=== PATIENT | male | born 1945 | race Caucasian/White ===

== ENCOUNTER 2018-02-23 17:15 | Inpatient (IN) | payer MEDICARE ==
[~2018-02-23] VITALS: Ht 168.9 cm; Wt 84.2 kg
[2018-02-23 18:03] LABS: BASOPHILS % (AUTO) 0.2 % (0.0-5.0); EOSINOPHILS % (AUTO) 0.1 % (0.0-8.0); HEMATOCRIT 39.7 % (42-54); LYMPHOCYTES % (AUTO) 2.3 % (21.0-51.0); MEAN CORPUSCULAR HEMOGLOBIN 28.7 pg (27.0-33.0); MEAN CORPUSCULAR HGB CONC 34.8 g/dL (32.0-36.0); MEAN CORPUSCULAR VOLUME 82.5 fL (79-99); MONOCYTES % (AUTO) 7.4 % (3.0-13.0); PLATELET COUNT (AUTO) 211 K/uL (130-400); RED BLOOD CELL COUNT(AUTO) 4.81 MIL/uL (4.50-6.20); RED CELL DISTRIBUTION WIDTH 14.5 % (11.0-15.5); WHITE BLOOD COUNT (AUTO) 15.1 K/uL (4.8-10.8)
[2018-02-23] MEDS ORDERED: CEFTRIAXONE SODIUM 1 GM ONE (18:09)
[2018-02-23] MEDS ORDERED: SODIUM CHLORIDE 0.9% 50 ML IV ONE (18:10)
[2018-02-23 18:20] LABS: ALBUMIN 2.3 g/dL (3.5-5.0); BILIRUBIN,TOTAL 1.4 mg/dL (0.2-1.0); POTASSIUM 4.7 mmol/L (3.5-5.1); TOTAL PROTEIN, SERUM 7.5 g/dL (6.0-8.3)
[2018-02-23 18:23] LABS: CREATININE 9.3 mg/dL (0.5-1.5)
[2018-02-23 18:57] LABS: BILIRUBIN,URINE Negative (NEGATIVE); COLOR,URINE Dark Yellow (YELLOW); GLUCOSE, URINE (UA) Negative (NEGATIVE); KETONES,URINE Negative (NEGATIVE); LEUKOCYTE ESTERASE ,URINE Large (NEGATIVE); NITRATE,URINE Negative (NEGATIVE); OCCULT BLOOD,URINE Large (NEGATIVE); PH,URINE 5.5 (5.0-8.0); PROTEIN,URINE 300 (NEGATIVE)
[2018-02-23] MEDS ORDERED: SODIUM CHLORIDE 0.9% 1000ML 1,000 ML IV ONE (18:57)
[2018-02-23 19:08] LABS: APPEARANCE,URINE CLOUDY (CLEAR)
[2018-02-23 19:50] LABS: WBC,URINE 51-100 /HPF (0-1)
[2018-02-23 19:51] LABS: BACTERIA,URINE Few /HPF (None Seen)
[2018-02-23 19:52] LABS: SQUAMOUS EPITHELIAL CELL,UR Rare /HPF (0-2)
[2018-02-23] MEDS ORDERED: ONDANSETRON HCL MDV 20ML 2 MG/ML VIAL IVP PRN (23:45)
[2018-02-23] MEDS ORDERED: ACETAMINOPHEN 325 MG TAB PO PRN (23:45)
[2018-02-23] MEDS ORDERED: PHARMACY COMMUNICATION MISC SCH (23:45)
[2018-02-24] VITALS (8 sets, daily range): BP systolic 111–132; BP diastolic 54–74
[2018-02-24] MEDS ORDERED: CEFTRIAXONE SODIUM 1 GM IVP SCH
[2018-02-24] MEDS: SODIUM CHLORIDE 0.9% 1000ML 1,000 ML IV SCH ×4 (01:07→10:00)
[2018-02-24] MEDS ORDERED: ZOSYN 3.375GM+NS 50ML 50 ML IV ONE (03:41)
[2018-02-24 05:42] LABS: BASOPHILS % (AUTO) 0.1 % (0.0-5.0); EOSINOPHILS % (AUTO) 0.2 % (0.0-8.0); HEMATOCRIT 34.6 % (42-54); LYMPHOCYTES % (AUTO) 2.2 % (21.0-51.0); MEAN CORPUSCULAR HEMOGLOBIN 27.8 pg (27.0-33.0); MEAN CORPUSCULAR HGB CONC 33.8 g/dL (32.0-36.0); MEAN CORPUSCULAR VOLUME 82.4 fL (79-99); NEUTROPHILS % (AUTO) 84.5 % (40.0-77.0); PLATELET COUNT (AUTO) 167 K/uL (130-400); RED CELL DISTRIBUTION WIDTH 14.8 % (11.0-15.5); WHITE BLOOD COUNT (AUTO) 15.4 K/uL (4.8-10.8)
[2018-02-24 06:01] LABS: ALBUMIN 1.8 g/dL (3.5-5.0); BILIRUBIN,TOTAL 1.1 mg/dL (0.2-1.0); POTASSIUM 4.2 mmol/L (3.5-5.1)
[2018-02-24 06:03] LABS: CREATININE 9.9 mg/dL (0.5-1.5)
[2018-02-24 06:12] LABS: CRP QUANTITATIVE 53.9 mg/L (0.00-9.0)
[2018-02-24 08:15] LABS: CREATININE,URINE RANDOM 101 mg/dL (30-135); SODIUM,URINE RANDOM 46 mmol/l (40-220)
[2018-02-24] MEDS ORDERED: ZOSYN 3.375GM+NS 50ML 50 ML IV SCH (09:00)
[2018-02-24] MEDS ORDERED: LISI-613 PO (10:03)
[2018-02-24] MEDS: METOPROLOL TARTRATE 25 MG TAB PO SCH (10:04)
[2018-02-24] MEDS: ZOSYN 3.375GM+NS 50ML 50 ML IV SCH (20:55)
[2018-02-24] MEDS ORDERED: ZOSYN 2.25GM+NS 50ML 50 ML IV SCH (21:00)
[2018-02-25 03:40] VITALS: BP 124/72
[2018-02-25 04:53] LABS: HEMATOCRIT 33.6 % (42-54); MEAN CORPUSCULAR HEMOGLOBIN 28.8 pg (27.0-33.0); MEAN CORPUSCULAR HGB CONC 34.9 g/dL (32.0-36.0); MEAN CORPUSCULAR VOLUME 82.6 fL (79-99); PLATELET COUNT (AUTO) 205 K/uL (130-400); RED BLOOD CELL COUNT(AUTO) 4.06 MIL/uL (4.50-6.20); RED CELL DISTRIBUTION WIDTH 15.2 % (11.0-15.5); WHITE BLOOD COUNT (AUTO) 14.1 K/uL (4.8-10.8)
[2018-02-25 05:15] LABS: ALBUMIN 1.6 g/dL (3.5-5.0); BILIRUBIN,TOTAL 1.4 mg/dL (0.2-1.0); POTASSIUM 3.8 mmol/L (3.5-5.1); TOTAL PROTEIN, SERUM 5.7 g/dL (6.0-8.3)
[2018-02-25 05:25] LABS: CREATININE 10.4 mg/dL (0.5-1.5)
[2018-02-25] MEDS: SODIUM CHLORIDE 0.9% 1000ML 1,000 ML IV SCH ×2 (06:00→18:44)
[2018-02-25 08:25] VITALS: BP 123/53
[2018-02-25] MEDS: METOPROLOL TARTRATE 25 MG TAB PO SCH (09:00)
[2018-02-25] MEDS: ENOXAPARIN SODIUM 30 MG/0.3 ML SQ SCH (09:01)
[2018-02-25] MEDS: PANTOPRAZOLE SODIUM 40 MG TABLET.DR PO SCH (09:02)
[2018-02-25] MEDS: ZOSYN 3.375GM+NS 50ML 50 ML IV SCH (09:02)
[2018-02-25 10:26] LABS: BASOPHILS % (AUTO) 0.5 % (0.0-5.0); EOSINOPHILS % (AUTO) 0.5 % (0.0-8.0); HEMATOCRIT 33.3 % (42-54); LYMPHOCYTES % (AUTO) 3.6 % (21.0-51.0); MEAN CORPUSCULAR HEMOGLOBIN 28.4 pg (27.0-33.0); MEAN CORPUSCULAR HGB CONC 34.6 g/dL (32.0-36.0); MONOCYTES % (AUTO) 10.8 % (3.0-13.0); NEUTROPHILS % (AUTO) 84.6 % (40.0-77.0); PLATELET COUNT (AUTO) 202 K/uL (130-400); RED BLOOD CELL COUNT(AUTO) 4.07 MIL/uL (4.50-6.20); RED CELL DISTRIBUTION WIDTH 14.9 % (11.0-15.5); WHITE BLOOD COUNT (AUTO) 14.8 K/uL (4.8-10.8)
[2018-02-25 12:46] VITALS: BP 114/64
[2018-02-25 13:40] LABS: PROTEIN,URINE RANDOM 125.5 mg/dL (0-11.9)
[2018-02-25] MEDS: MEROPENEM 1 GM VIAL IVP SCH (16:38)
[2018-02-25 16:53] VITALS: BP 130/68
[2018-02-25 20:05] VITALS: BP 115/66
[2018-02-25] MEDS: SIMETHICONE 80 MG TAB.CHEW PO PRN (21:16)
[2018-02-26 00:21] VITALS: BP 125/72
[2018-02-26] MEDS: SODIUM CHLORIDE 0.9% 1000ML 1,000 ML IV SCH ×2 (02:04→21:24)
[2018-02-26 03:25] VITALS: BP 115/59
[2018-02-26 05:24] LABS: BASOPHILS % (AUTO) 0.3 % (0.0-5.0); EOSINOPHILS % (AUTO) 0.6 % (0.0-8.0); HEMATOCRIT 39.6 % (42-54); LYMPHOCYTES % (AUTO) 17.7 % (21.0-51.0); MEAN CORPUSCULAR HEMOGLOBIN 27.6 pg (27.0-33.0); MEAN CORPUSCULAR HGB CONC 33.4 g/dL (32.0-36.0); MEAN CORPUSCULAR VOLUME 82.8 fL (79-99); MONOCYTES % (AUTO) 6.2 % (3.0-13.0); NEUTROPHILS % (AUTO) 75.2 % (40.0-77.0); PLATELET COUNT (AUTO) 199 K/uL (130-400); RED BLOOD CELL COUNT(AUTO) 4.78 MIL/uL (4.50-6.20); RED CELL DISTRIBUTION WIDTH 15.5 % (11.0-15.5)
[2018-02-26 05:43] LABS: ALBUMIN 1.7 g/dL (3.5-5.0); BILIRUBIN,TOTAL 1.1 mg/dL (0.2-1.0); POTASSIUM 4.2 mmol/L (3.5-5.1); TOTAL PROTEIN, SERUM 6.1 g/dL (6.0-8.3)
[2018-02-26 05:47] LABS: CREATININE 11.5 mg/dL (0.5-1.5)
[2018-02-26] MEDS ORDERED: 1/2 NORMAL SALINE 1,000 ML IV SCH (07:15)
[2018-02-26 07:30] VITALS: BP 132/78
[2018-02-26] MEDS: PANTOPRAZOLE SODIUM 40 MG TABLET.DR PO SCH (08:15)
[2018-02-26] MEDS: ENOXAPARIN SODIUM 30 MG/0.3 ML SQ SCH (08:16)
[2018-02-26] MEDS: METOPROLOL TARTRATE 25 MG TAB PO SCH (08:16)
[2018-02-26] MEDS ORDERED: FOLIC ACID/VITAMIN B COMP W-C 1 MG CAPSULE PO SCH (09:00)
[2018-02-26] MEDS ORDERED: PHARMACY COMMUNICATION MISC SCH (10:30)
[2018-02-26 11:00] VITALS: BP 120/66
[2018-02-26] MEDS: SODIUM BICARB 8.4% 50ML SYRING 75 MEQ in 1/2 NORMAL SALINE 1,000 ML IVP SCH (11:49)
[2018-02-26] MEDS: MEROPENEM 1 GM VIAL IVP SCH (12:32)
[2018-02-26 16:00] VITALS: BP 132/70
[2018-02-26 20:00] VITALS: BP 136/77
[2018-02-27] VITALS: BP 136/76
[2018-02-27] MEDS: SODIUM BICARB 8.4% 50ML SYRING 75 MEQ in 1/2 NORMAL SALINE 1,000 ML IVP SCH (00:32)
[2018-02-27 04:00] VITALS: BP 136/75
[2018-02-27 06:04] LABS: BASOPHILS % (AUTO) 0.3 % (0.0-5.0); EOSINOPHILS % (AUTO) 0.8 % (0.0-8.0); HEMATOCRIT 33.9 % (42-54); LYMPHOCYTES % (AUTO) 9.1 % (21.0-51.0); MEAN CORPUSCULAR HEMOGLOBIN 28.7 pg (27.0-33.0); MEAN CORPUSCULAR HGB CONC 35.1 g/dL (32.0-36.0); MEAN CORPUSCULAR VOLUME 81.9 fL (79-99); MONOCYTES % (AUTO) 7.9 % (3.0-13.0); NEUTROPHILS % (AUTO) 81.9 % (40.0-77.0); NUCLEATED RED BLOOD CELLS 0.1 % (0.0-0.19); PLATELET COUNT (AUTO) 274 K/uL (130-400); RED BLOOD CELL COUNT(AUTO) 4.14 MIL/uL (4.50-6.20); RED CELL DISTRIBUTION WIDTH 14.9 % (11.0-15.5); WHITE BLOOD COUNT (AUTO) 14.2 K/uL (4.8-10.8)
[2018-02-27 06:23] LABS: POTASSIUM 4.4 mmol/L (3.5-5.1)
[2018-02-27] MEDS: PANTOPRAZOLE SODIUM 40 MG TABLET.DR PO SCH (06:48)
[2018-02-27 08:00] VITALS: BP 146/77
[2018-02-27] MEDS ORDERED: FUROSEMIDE 10 MG/ML 4ML VIAL IV SCH (08:00)
[2018-02-27] MEDS: METOPROLOL TARTRATE 25 MG TAB PO SCH (09:41)
[2018-02-27] MEDS: ENOXAPARIN SODIUM 30 MG/0.3 ML SQ SCH (09:43)
[2018-02-27 11:00] VITALS: BP 139/74
[2018-02-27] MEDS: MEROPENEM 1 GM VIAL IVP SCH (13:22)
[2018-02-27 16:00] VITALS: BP 140/74
[2018-02-27 20:00] VITALS: BP 140/75
[2018-02-28] VITALS: BP 129/65
[2018-02-28 04:20] VITALS: BP 149/73
[2018-02-28 05:37] LABS: BASOPHILS % (AUTO) 0.7 % (0.0-5.0); EOSINOPHILS % (AUTO) 1.2 % (0.0-8.0); HEMATOCRIT 33.4 % (42-54); LYMPHOCYTES % (AUTO) 9.5 % (21.0-51.0); MEAN CORPUSCULAR HEMOGLOBIN 27.9 pg (27.0-33.0); MEAN CORPUSCULAR HGB CONC 34.4 g/dL (32.0-36.0); MEAN CORPUSCULAR VOLUME 81.2 fL (79-99); NEUTROPHILS % (AUTO) 80.6 % (40.0-77.0); PLATELET COUNT (AUTO) 299 K/uL (130-400); RED BLOOD CELL COUNT(AUTO) 4.11 MIL/uL (4.50-6.20); RED CELL DISTRIBUTION WIDTH 14.9 % (11.0-15.5); WHITE BLOOD COUNT (AUTO) 13.6 K/uL (4.8-10.8)
[2018-02-28 05:59] LABS: POTASSIUM 4.6 mmol/L (3.5-5.1)
[2018-02-28 07:00] VITALS: BP 133/75
[2018-02-28] MEDS: PANTOPRAZOLE SODIUM 40 MG TABLET.DR PO SCH (07:06)
[2018-02-28] MEDS: METOPROLOL TARTRATE 25 MG TAB PO SCH (10:00)
[2018-02-28] MEDS: SIMETHICONE 80 MG TAB.CHEW PO PRN (10:00)
[2018-02-28] MEDS: ENOXAPARIN SODIUM 30 MG/0.3 ML SQ SCH (10:02)
[2018-02-28 11:00] VITALS: BP 121/74
[2018-02-28] MEDS: MEROPENEM 1 GM VIAL IVP SCH (13:30)
[2018-02-28 16:00] VITALS: BP 140/76
[2018-02-28 20:34] VITALS: BP 129/64
[2018-03-01 00:47] VITALS: BP 129/60
[2018-03-01 05:08] VITALS: BP 147/71
[2018-03-01 06:13] LABS: HEMATOCRIT 34.3 % (42-54); MEAN CORPUSCULAR HEMOGLOBIN 28.7 pg (27.0-33.0); MEAN CORPUSCULAR HGB CONC 35.1 g/dL (32.0-36.0); MEAN CORPUSCULAR VOLUME 81.8 fL (79-99); PLATELET COUNT (AUTO) 456 K/uL (130-400); RED BLOOD CELL COUNT(AUTO) 4.19 MIL/uL (4.50-6.20); RED CELL DISTRIBUTION WIDTH 14.7 % (11.0-15.5); WHITE BLOOD COUNT (AUTO) 14.5 K/uL (4.8-10.8)
[2018-03-01 06:36] LABS: ALBUMIN 1.9 g/dL (3.5-5.0); BILIRUBIN,TOTAL 0.8 mg/dL (0.2-1.0); POTASSIUM 4.7 mmol/L (3.5-5.1); TOTAL PROTEIN, SERUM 6.5 g/dL (6.0-8.3)
[2018-03-01] MEDS: PANTOPRAZOLE SODIUM 40 MG TABLET.DR PO SCH (06:36)
[2018-03-01 06:45] LABS: CREATININE 10.8 mg/dL (0.5-1.5)
[2018-03-01 08:00] VITALS: BP 134/77
[2018-03-01] MEDS: ENOXAPARIN SODIUM 30 MG/0.3 ML SQ SCH (09:36)
[2018-03-01] MEDS: METOPROLOL TARTRATE 25 MG TAB PO SCH (09:36)
[2018-03-01 12:00] VITALS: BP 137/78
[2018-03-01] MEDS: MEROPENEM 1 GM VIAL IVP SCH (14:27)
[2018-03-01 16:59] VITALS: BP 133/70
[2018-03-01 19:00] VITALS: BP 139/65
[2018-03-02] VITALS: BP 140/73
[2018-03-02 04:00] VITALS: BP 145/68
[2018-03-02 05:25] LABS: BASOPHILS % (AUTO) 0.8 % (0.0-5.0); EOSINOPHILS % (AUTO) 0.9 % (0.0-8.0); HEMATOCRIT 32.1 % (42-54); LYMPHOCYTES % (AUTO) 12.2 % (21.0-51.0); MEAN CORPUSCULAR HEMOGLOBIN 27.6 pg (27.0-33.0); MEAN CORPUSCULAR HGB CONC 33.6 g/dL (32.0-36.0); MONOCYTES % (AUTO) 10.2 % (3.0-13.0); NEUTROPHILS % (AUTO) 75.9 % (40.0-77.0); PLATELET COUNT (AUTO) 424 K/uL (130-400); RED BLOOD CELL COUNT(AUTO) 3.92 MIL/uL (4.50-6.20); RED CELL DISTRIBUTION WIDTH 14.6 % (11.0-15.5); WHITE BLOOD COUNT (AUTO) 11.5 K/uL (4.8-10.8)
[2018-03-02 05:34] LABS: POTASSIUM 4.4 mmol/L (3.5-5.1)
[2018-03-02 05:52] LABS: CREATININE 9.5 mg/dL (0.5-1.5)
[2018-03-02] MEDS: PANTOPRAZOLE SODIUM 40 MG TABLET.DR PO SCH (06:50)
[2018-03-02 08:00] VITALS: BP 130/54
[2018-03-02] MEDS: ENOXAPARIN SODIUM 30 MG/0.3 ML SQ SCH (09:00)
[2018-03-02] MEDS: METOPROLOL TARTRATE 25 MG TAB PO SCH (10:48)
[2018-03-02 11:47] VITALS: BP 142/66
[2018-03-02 13:39] LABS: INR 1.1 (0.85-1.15); PARTIAL THROMBOPLASTIN TIME 30.7 SEC (26.3-35.5); PROTHROMBIN TIME 11.5 SEC (9.6-11.6)
[2018-03-02] MEDS: MEROPENEM 1 GM VIAL IVP SCH (15:51)
[2018-03-02 16:58] VITALS: BP 148/77
== END 2018-03-02 19:32 | disposition home or self-care (01) | DRG 871 ==
LOC: EDH 17:15 → EDHIP 19:20 → 3CH 21:05
PROVIDERS: ADMIT Hospitalist; ATTEND Hospitalist
DX: A41.50 Gram-negative sepsis, unspecified (principal); N17.0 Acute kidney failure with tubular necrosis; N12 Tubulo-interstitial nephritis, not specified as acute or chronic; E87.2 Acidosis; B96.20 Unspecified Escherichia coli [E. coli] as the cause of diseases classified elsewhere; I12.9 Hypertensive chronic kidney disease with stage 1 through stage 4 chronic kidney disease, or unspecified chronic kidney disease; N18.9 Chronic kidney disease, unspecified; N28.1 Cyst of kidney, acquired; R31.0 Gross hematuria; M19.90 Unspecified osteoarthritis, unspecified site; Z16.12 Extended spectrum beta lactamase (ESBL) resistance; Z16.24 Resistance to multiple antibiotics; Z96.611 Presence of right artificial shoulder joint; Z96.651 Presence of right artificial knee joint; R54 Age-related physical debility
CPT/HCPCS: 36415; 71045; 74176; 76770; 80048; 80053; 81001; 82570; 83605; 84153; 84154; 84156; 84300; 84540; 85025; 85027; 85610; 85730; 86140; 87040; 87077; 87088; 87186; 97039; A4218; A4344; C1894; J0696; J1650; J1940; J2185; J2543; J3490; J7030